=== PATIENT | male | born 1985 | race Hispanic/Latino ===

== ENCOUNTER 2018-04-17 20:37 | Emergency (ER) | payer OTHER ==
[2018-04-17 20:59] VITALS: RESP 18; TEMP 98; O2SAT 99
[2018-04-17] MEDS ORDERED: Tdap Vaccine 0.5 ml Vial (10-64 yrs) IM ONE ×2 (22:02→22:43)
[2018-04-17] MEDS ORDERED: Lidocaine 2% w Epi 1:100,000 Inj IJ ONE (22:02)
--- NOTE | 2018-04-17 22:08 | ED PDOC ---
HPI: Eye Injury/Pain Time Seen by Provider: 04/17/18 21:54 Chief Complaint (Nursing): Abnormal Skin Integrity Chief Complaint (Provider): Facial Laceration History Per: Patient History/Exam Limitations: no limitations Onset/Duration Of Symptoms: Hrs (x1) Additional Complaint(s): Patient is a 32 year old male who presents for evaluation of an eyelid laceration. Patient reports that 1 hour prior to arrival while patient was playing soccer he was elbowed to the left eye. Patient is seeking wound evaluation at this time. No LOC at the time of injury. Patient has no other complaints at present. Denies: headache, dizziness, n/v, visual changes, foreign body sensation to the eye, recent fever, chills. Not on anticoagulants. PMD: Rema Tetanus: Not UTD Past Medical History Reviewed: Historical Data, Nursing Documentation, Vital Signs Vital Signs: Last Vital Signs Temp 98 F 04/17/18 20:55 Pulse 70 04/17/18 20:55 Resp 18 04/17/18 20:55 BP 117/80 04/17/18 20:55 Pulse Ox 99 04/17/18 20:55 - Medical History PMH: No Chronic Diseases - Surgical History Other surgeries: R meniscus repair - Family History Family History: States: Unknown Family Hx - Living Arrangements Living Arrangements: With Family - Social History Current smoker - smoking cessation education provided: No Alcohol: Social Drugs: Denies - Immunization History Hx Tetanus Toxoid Vaccination: No - Home Medications Home Medications: Ambulatory Orders Medication Instructions Recorded Bacitracin Ointment [Bacitracin] 1 applic TOP BID #1 tube 04/17/18 - Allergies Allergies/Adverse Reactions: Allergies Allergy/AdvReac Type Severity Reaction Status Date / Time No Known Allergies Allergy Verified 04/17/18 20:55 Review of Systems ROS Statement: Except As Marked, All Systems Reviewed And Found Negative Skin: Positive for: Other (laceration to left upper eyelid) Physical Exam - Reviewed Nursing Documentation Reviewed: Yes Vital Signs Reviewed: Yes - Physical Exam Comments: GENERAL APPEARANCE: Patient is awake, alert, oriented x 3, in no acute distress. Resting comfortably. HEAD: (-) scalp tenderness or hematoma HEENT: (-) facial swelling and erythema, (-) facial blisters (-) periorbital tenderness, ecchymosis, or swelling. (+) 1cm, linear, horizontal, superficial laceration just inferior to the lateral aspect of the left eyebrow (-) surrounding ecchymosis (-) palpable bony deformity (-) tenderness (-) active bleeding LIDS & LASHES: Normal. PUPILS: Pupils equal and reactive. EOM's: Intact and painless. LID EVERSION: (-) foreign body. CONJUNCTIVAE: (-) injection. ANTERIOR CHAMBER: (-) hyphema CHEST AND RESPIRATORY: (-) rales, (-) rhonchi, (-) wheezes; breath sounds equal bilaterally. Respirations even and nonlabored. HEART AND CARDIOVASCULAR: (-) irregularity; (-) murmur NEURO: Mental status as above. Gait steady, speech clear. Cerebellar tests intact. Cranial nerves II-XII grossly intact. (-)facial asymmetry (-) focal deficit. - ECG O2 Sat by Pulse Oximetry: 99 (RA) Pulse Ox Interpretation: Normal Medical Decision Making Medical Decision Makin Initial Impression: eyelid laceration Plan: - Laceration repair - Lidocaine with Epi for laceration repair - Tetanus IM - Patient declined pain medication - Risks and benefits of head CT discussed with patient. Patient in agreement with provider that CT is not necessary at this time. Educated on signs and symptoms that should prompt immediate return to ED for CT evaluation. 2244 Laceration repair performed by Homar COREA. See procedure note. 2299 On re-evaluation, patient has no complaints. On exam, patient remains AAOx3, in no acute distress. On exam, neck is supple, lungs CTA, cardiac RRR, neuro exam shows no focal findings. VSS, stable for discharge. Diagnostic results d/w the patient in great detail. Dx of facial laceration, head injury d/w the patient. Based on history, exam and diagnostic results plan will be for discharge and outpatient follow up. Advised to follow up with primary care physician in 1-2 days without fail for wound check and suture removal in 5 days. Advised to take medication as prescribed. Return to the emergency room at any time for any new or worsening symptoms. Patient states he fully agrees with and understands discharge instructions. States that he agrees with the plan and disposition. Verbalized and repeated discharge instructions and plan. I have given the patient opportunity to ask any additional questions. Procedures - Laceration/Wound Repair Eyelid laceration Wound Length (cm): 1 Wound's Depth, Shape: superficial, linear Wound Explored: clean Irrigated w/ Saline (ccs): 50 Betadine Prep?: No Anesthesia: Lidocaine w/ Epi Volume Anesthetic (ccs): 1 Wound Debrided: minimal Wound Repaired With: Sutures Suture Size/Type: 5:0, proline Number of Sutures: 3 Layer Closure?: No Wound Complexity: Simple Sterile Dressing Applied?: Yes (bacitracin and dressing applied) Progress: Patient tolerated procedure well. Educated on wound care. Advised suture removal in 5 days. Disposition - Clinical Impression Clinical Impression: Facial laceration - Patient ED Disposition Is Patient to be Admitted: No Counseled Patient/Family Regarding: Studies Performed, Diagnosis, Need For Followup, Rx Given - Disposition Referrals: Patito Hodgson MD [Staff Provider] - Disposition: Routine/Home Disposition Time: 22:58 Condition: STABLE Additional Instructions: Wound check in 2 days. Suture removal in 5 days. The emergency medical care you received today was directed at your acute symptoms. If you were prescribed any medication, please fill it and take as directed. It may take several days for your symptoms to resolve. Return to the Emergency Department if your symptoms worsen, do not improve, or if you have any other problems. Please contact your doctor in 2 days for re-evaluation and follow up / or call one of the physicians/clinics you have been referred to that are listed on the Patient Visit Information form that is included in your discharge packet. Bring any paperwork you were given at discharge with you along with any medications you are taking to your follow up visit. Our treatment cannot replace ongoing medical care by a primary care provider (PCP) outside of the emergency department. Prescriptions: Bacitracin Ointment [Bacitracin] 1 applic TOP BID #1 tube Instructions: Laceration Repair With Stitches (DC), Minor Head Injury Forms: [place] ([place]) Print Language: [place] - POA Present On Arrival: Falls Or Trauma
[2018-04-17 23:05] VITALS: BP 118/75; PULSE 78
== END 2018-04-17 23:05 | disposition home or self-care (01) ==
LOC: H.ER 20:37
DX: S01.111A Laceration without foreign body of right eyelid and periocular area, initial encounter (principal); W22.8XXA Striking against or struck by other objects, initial encounter; Y92.322 Soccer field as the place of occurrence of the external cause